=== PATIENT | male | born 1995 | race American Indian/Alaskan Native ===

== ENCOUNTER 2019-07-04 14:27 | Emergency (ER) | payer OTHER ==
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
[2019-07-04] MEDS ORDERED: IBUPROFEN PO ONE (18:40)
[2019-07-04] MEDS ORDERED: ZANAFLEX PO ONE (18:41)
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
[2019-07-04 19:31] VITALS: BP 132/88
== END 2019-07-04 19:10 | disposition home or self-care (01) ==
LOC: ED 14:27
DX: M54.2 Cervicalgia (principal); M54.5 Low back pain; Z79.1 Long term (current) use of non-steroidal anti-inflammatories (NSAID); V89.2XXA Person injured in unspecified motor-vehicle accident, traffic, initial encounter; Y93.89 Activity, other specified; Y92.488 Other paved roadways as the place of occurrence of the external cause; Y99.8 Other external cause status
CPT/HCPCS: 72040; 99284